=== PATIENT | female | born 1990 | race Two or more races ===

== ENCOUNTER 2021-03-10 13:44 | Emergency (ER) | payer OTHER ==
[~2021-03-10] VITALS: Ht 162.6 cm; Wt 106.6 kg
== END 2021-03-10 18:33 | disposition home or self-care (01) ==
LOC: ER 13:44
DX: O26.891 Other specified pregnancy related conditions, first trimester (principal); R10.2 Pelvic and perineal pain; O30.91 Multiple gestation, unspecified, first trimester; O36.80X1 Pregnancy with inconclusive fetal viability, fetus 1; Z34.01 Encounter for supervision of normal first pregnancy, first trimester

== ENCOUNTER 2021-09-20 17:08 | Inpatient (IN) | payer OTHER ==
[~2021-09-20] VITALS: Ht 162.6 cm; Wt 2.7 kg
[2021-09-20] MEDS ORDERED: PRENATAL TABLE1 EAC1 PO (18:39)
== END 2021-09-23 14:48 | disposition home or self-care (01) | DRG 786 ==
LOC: OB/GYN 17:08 → LDR 17:08 → O/R 20:04 → OB/GYN 21:18
PROVIDERS: ADMIT Obstetrics & Gynecology; ATTEND Obstetrics & Gynecology
PROC: 4A1HXFZ Monitoring of Products of Conception, Cardiac Rhythm, External Approach (ICD-10-PCS; 2021-09-20)
PROC: 10D00Z1 Extraction of Products of Conception, Low, Open Approach (ICD-10-PCS; principal; 2021-09-20 18:30)
DX: O42.013 Preterm premature rupture of membranes, onset of labor within 24 hours of rupture, third trimester (principal); O60.14X0 Preterm labor third trimester with preterm delivery third trimester, not applicable or unspecified; O34.211 Maternal care for low transverse scar from previous cesarean delivery; Z3A.36 36 weeks gestation of pregnancy; Z37.0 Single live birth